=== PATIENT | male | born 1945 | race Caucasian/White ===

== ENCOUNTER 2017-08-24 19:57 | Inpatient (IN) | payer OTHER ==
[~2017-08-24] VITALS: Ht 177.8 cm; Wt 90.4 kg
[~2017-08-24 19:57] MED LIST: NORVASC5 M1 PO; VERAPAMIL HCL180 MG PO; ZANTAC150 MG PO
[2017-08-24 20:56] LABS: HEMOGLOBIN 15.1 G/DL (12.5-16.6); MCH 33.2 PG (29.0-34.0); MCHC 34.3 G/DL (30.0-36.0); MCV 96.7 FL (86-99); PLATELET COUNT 230 K/uL (156-360); RBC DIS.WIDTH-CV 12.4 % (11.8-14.6); RBC DIS.WIDTH-SD 44.8 % (39-53); RED BLOOD COUNT 4.55 M/uL (4.00-5.50); WHITE BLOOD COUNT 10.5 K/uL (4.1-10.2)
[2017-08-24 21:09] LABS: CHLORIDE 104 mEq/L (99-109); POTASSIUM 3.8 mEq/L (3.7-5.4); SODIUM 139 mEq/L (136-147)
[2017-08-24 21:10] LABS: GLUCOSE 117 mg/dL (70-99)
[2017-08-24 21:14] LABS: CREATININE 0.8 mg/dL (0.6-1.3); GFR ESTIMATE (CALCULATED) > 59 mL/min/ (58.99-99999)
[2017-08-24 21:15] LABS: UREA NITROGEN (BUN) 13 mg/dL (9-23)
[2017-08-24 21:55] LABS: INTER. NORMALIZED RATIO 1.1
[2017-08-24 21:58] LABS: PTT 30.5 SEC (25-37)
[2017-08-24] MEDS ORDERED: B-COMPLEX-VITA1 EACH PO (22:28)
[2017-08-24] MEDS ORDERED: VITAMIN D31000 UNI2 PO (22:28)
[2017-08-24 22:36] LABS: HDL CHOLESTEROL 64 MG/DL (Desirable>=40); LDL CHOLESTEROL 69 mg/dL (Desirable<100); NON-HDL CHOLESTEROL 92 mg/dL (Desirable<160); TOTAL CHOLESTEROL 156 mg/dL (Desirable<200); TRIGLYCERIDES 115 MG/DL (Normal: <150)
[2017-08-25 08:05] VITALS: BP 158/80
[2017-08-25 10:20] LABS: HEMOGLOBIN A1c (GLYCOHEMOGLOB) 4.9 % (Below 5.7)
[2017-08-25 11:42] VITALS: BP 158/82
[2017-08-25 15:51] VITALS: BP 146/79
[2017-08-25 20:05] VITALS: BP 120/65
[2017-08-26 01:03] VITALS: BP 151/70
[2017-08-26 03:53] VITALS: BP 134/70
[2017-08-26 07:15] LABS: BASOPHIL (%) 0.5 % (0-1); EOSINOPHIL COUNT 0.2 K/uL (0-0.3); HEMOGLOBIN 15.6 G/DL (12.5-16.6); IMMATURE GRANULOCYTE (%) 0.3 % (0.0-0.7); LYMPHOCYTE (%) 25.5 % (15-42); LYMPHOCYTE COUNT 1.7 K/uL (1.0-2.8); MCH 33.1 PG (29.0-34.0); MCHC 33.9 G/DL (30.0-36.0); MCV 97.7 FL (86-99); MONOCYTE (%) 11.4 % (3-12); MONOCYTE COUNT 0.8 K/uL (0-0.8); NEUTROPHIL (%) 59.3 % (45-76); PLATELET COUNT 227 K/uL (156-360); RBC DIS.WIDTH-CV 12.6 % (11.8-14.6); RBC DIS.WIDTH-SD 45.9 % (39-53); RED BLOOD COUNT 4.71 M/uL (4.00-5.50); WHITE BLOOD COUNT 6.7 K/uL (4.1-10.2)
[2017-08-26 07:44] LABS: CHLORIDE 102 MEQ/L (99-109); CREATININE 0.8 MG/DL (0.6-1.3); GFR ESTIMATE (CALCULATED) > 59 mL/min/ (58.99-99999); GLUCOSE 88 mg/dL (70-99); SODIUM 137 MEQ/L (136-147); UREA NITROGEN (BUN) 17 mg/dL (9-23)
[2017-08-26 07:46] LABS: POTASSIUM 4.8 MEQ/L (3.7-5.4)
[2017-08-26 09:22] VITALS: BP 142/77
[2017-08-26 13:19] VITALS: BP 146/89
[2017-08-26] MEDS ORDERED: TYLENOL REGULA325 MG PO (14:24)
[2017-08-26] MEDS ORDERED: AMLODIPINE BESY10 MG PO (14:34)
[2017-08-26] MEDS ORDERED: CLOPIDOGREL75 MG PO (14:34)
== END 2017-08-26 16:22 | disposition home or self-care (01) | DRG 66 ==
LOC: EME → EDBD 19:57 → EDOF 08-25 00:31 → 5SOUTH 08-25 00:31 → EDOF 08-25 00:31 → ENRESERV 08-25 00:32 → 5SOUTH 08-25 08:03 → ENPENDDIS 08-26 14:32 → 5SOUTH 08-26 16:22
PROVIDERS: Emergency Medicine; Internal Medicine
DX: I63.9 Cerebral infarction, unspecified (principal); I10 Essential (primary) hypertension; K21.9 Gastro-esophageal reflux disease without esophagitis; R29.810 Facial weakness; Z87.891 Personal history of nicotine dependence
CPT/HCPCS: 70450; 70551; 71046; 80048; 80061; 83036; 85025; 85027; 85610; 85730; 93005; 93306; 93880; J1644